=== PATIENT | male | born 1970 | race African-American/Black ===

== ENCOUNTER 2019-09-25 16:41 | Inpatient (IN) ==
[2019-09-25] MEDS ORDERED: ACETAMINOPHEN 1,000 MG/100 ML VIAL IV STA (17:20)
[2019-09-25] MEDS ORDERED: SODIUM CHLORIDE 0.9% 1000ML 2,000 ML IV ONE (17:20)
[2019-09-25] MEDS ORDERED: PROCHLORPERAZINE 2 ML IV ONE (17:20)
[2019-09-25] MEDS ORDERED: DEXAMETHASONE SOD INJ 10 MG/ML VIAL IV ONE (17:20)
[2019-09-25 17:31] LABS: Hematocrit (blood only) 37.5 % (42-52); Hemoglobin 13.2 g/dL (14.0-18.0); Immature Granulocytes # (auto) 0.03 K/uL (0.00-0.02); Immature Granulocytes % (auto) 0.3 %; Lymphocytes # (auto) 0.68 K/uL (1.2-3.4); Lymphocytes % (auto) 7.2 %; Mean Corpuscular Hemoglobin 29.5 pg (25-34); Mean Corpuscular Hgb Conc 35.2 g/dL (32-36); Mean Corpuscular Volume 83.7 fL (80-100); Mean Platelet Volume 11.7 fL (7.4-10.4); Monocytes # (auto) 1.27 K/uL (0.11-0.59); Monocytes % (auto) 13.4 %; Neutrophils % (auto) 79.1 %; Platelet Count 153 K/uL (130-400); RDW Coefficient of Variation 13.6 % (11.5-14.5); RDW Standard Deviation 41.5 fL (36.4-46.3); Red Blood Count 4.48 M/uL (4.7-6.1); White Blood Count 9.48 K/uL (4.8-10.8)
[2019-09-25 17:38] LABS: Alanine Aminotransferase 71 U/L (12-78); Albumin Level 2.5 gm/dl (3.4-5.0); Aspartate Aminotransferase 93 U/L (15-37); BUN Creatinine Ratio 9.6 (10-20); Bilirubin Direct 0.3 mg/dl (0-0.2); Blood Urea Nitrogen 13 mg/dl (7-18); Calcium 8.2 mg/dl (8.5-10.1); Carbon Dioxide 25 mmol/L (21-32); Chloride 98 mmol/L (98-107); Creatinine Clr Calc Pharmacy 71.1 ml/min; Est GFR (African American) 69.1; Est GFR (Non-African American) 59.6; Glucose 117 mg/dl (70-99); Magnesium 2.3 mg/dl (1.8-2.4); Potassium 3.2 mmol/L (3.5-5.1); Sodium 132 mmol/L (136-145)
[2019-09-25 17:42] LABS: INR 1.1 (0.9-1.1); Partial Thromboplastin Ratio 1.3; Prothrombin Time 11.9 Seconds (9.0-12.0)
[2019-09-25 17:43] LABS: Alkaline Phosphatase 95 U/L (45-117); Bilirubin,Total 0.7 mg/dl (0.2-1); Creatine Kinase 355 U/L (39-308); Phosphorus 2.2 mg/dl (2.5-4.9); Troponin I < 0.015 ng/ml (0-0.045)
[2019-09-25 17:51] LABS: Albumin Globulin Ratio 0.5 (0.9-2); Globulin 4.7 gm/dl (2.5-4.0); Total Protein 7.2 gm/dl (6.4-8.2)
[2019-09-25] MEDS ORDERED: AZITHROMYCIN 250 MG TAB PO ONE (18:03)
--- NOTE | 2019-09-25 18:07 | XRay Report ---
XR chest 1V portable HISTORY: 49 years-old Male SEPSIS acute sepsis COMPARISON: None TECHNIQUE: Portable AP view of the chest FINDINGS: Cardiac silhouette is upper limits of normal in size. Mild calcified plaque of the thoracic aorta. No pneumothorax. Mild blunting of the costophrenic angles may reflect trace effusions. Multisegmental m ixed interstitial and alveolar opacities are noted throughout the left lung. Bones appear grossly int act. IMPRESSION: Multifocal mixed interstitial and alveolar opacities throughout the left lung are suggest fritz of pneumonia. Asymmetric pulmonary edema considered less likely. ACT 112: Negative or not required by law. The above report was generated using voice recognition software. It may contain grammatical, syntax o r spelling errors. Electronically signed by: Rob Brunson M.D. 09/25/2019 6:06 PM
[2019-09-25] MEDS: cefTRIAXone SODIUM 2,000 MG/70 ML BAG IV STA ×2 (18:25→18:40)
[2019-09-25] MEDS ORDERED: VANCOMYCIN HCL 1,750 MG in SODIUM CHLORIDE 0.9% 500 ML IV ONE (18:35)
[2019-09-25] MEDS ORDERED: PIPERACILLIN/TAZOBACTAM 4.5 GM/120 ML BAG IV ONE (18:35)
[2019-09-25] MEDS ORDERED: PIPERACILL/TAZOBAC CONSULT ACTIVE PRN (18:35)
[2019-09-25] MEDS ORDERED: VANCOMYCIN CONSULT ACTIVE PRN ×2 (18:35→22:02)
--- NOTE | 2019-09-25 19:04 | History & Physical Report ---
Date of Service September 25, 2019 Assessment & Plan (1) Sepsis: Lactate WNL. 2L NSS bolus given in ER. SIRS criteria with RR 28, tachycardia > 90, temp 38.2 Source PNA +/- meningitis (severe headache, neck pain, prior tooth extraction without significant respiratory symptoms) (2) Pneumonia: COVID-19 negative. Biofire pending MRSA nasal swab negative - however given possibility of meningitis we will continue vancomycin until CSF culture back Continue ceftriaxone dose for meningitis, vancomycin, azithromycin (3) Headache: Significantly improved with Decadron, acetaminophen, IV fluids (4) Bacterial meningitis: Given significant fever, diaphoresis with main symptoms of headache, dizziness and neck pain will get LP to r/o meningitis since he has very little respiratory symptoms. No altered mental state of focal neurology and neck pain resolved with treatment in the ER. Presentation of 4 days of symptoms also not typical. No known immunocompromised state to suggest this however. Vancomycin + Ceftriaxone 2g IV BID prior to meningitis rule out Decadron 10mg given in ER, continue 10mg IV Q6H until meningitis ruled out (5) Hypoxia: Secondary to PNA above. Aim O2 sats > 94% (6) DVT prophylaxis: Deferred chemical prophylaxis due to need for LP Admission and Anticipated Discharge Date Admission Date: 09/25/19 History of Present Illness Chief Complaint: Fever, headache Primary Care Provider: GABRIELLE Escudero Chaim Craig is a 49-year-old male who presents to the ER with fever, fatigue, severe headache, neck pain for the past 4 days. He reports his symptoms started suddenly 4 days ago Sunday. Progressively getting worse since then. He reports relatively rapid relief in the ER with Decadron, Compazine, acetaminophen, 2 L normal saline bolus and antibiotics given, although he is still significantly diaphoretic. He denies any chest pain, cough, shortness of breath. Note from review does report hypoxia with O2 sats 89% on room air. In the ER he was initially given ceftriaxone and Zithromax. After referred to medicine his antibiotics were broadened to Zosyn and Vancomycin although I am unclear on the reasons for this. COVID-19 was negative. 2 weeks ago he had a tooth pulled. Allergies Allergy/AdvReac Type Severity Reaction Status Date / Time No Known Allergies Allergy Unverified 09/25/19 17:31 Home Medications Home Medications Medication Instructions Recorded Confirmed Type No Known Home Medications 09/25/19 09/25/19 History Past Med/Surg History Social History Smoking Status: Former smoker Do You Dip or Chew Tobacco: No; Hx Alcohol Use: No (former) Hx Substance Use: No Preferred Language: Belarusian Communication Ability: Effective Nurse Private Duty Required: No Beliefs That Will Affect Care: None Current Living Situation: Other Current Living Situation Comment: [facility] Feels Safe at Home: Yes Review of Systems Review of Systems: All systems reviewed & are unremarkable except as noted in HPI & below Physical Exam Constitutional: well developed and well nourished; no acute distress Eyes: PERRL, conjunctivae normal, anicteric sclerae ENMT: external ear and nose normal, oropharynx normal Neck: trachea midline, no thyromegaly Respiratory: normal respiratory effort; no respiratory distress Auscultation: + crackles (coarse left base and laterally); no diminished lung sounds, no rales, no rhonchi and no wheezes Cardiovascular: Rate/Rhythm: + tachycardic Heart Sounds: no murmur Vessels: no JVD Extremities: normal capillary refill; no calf tenderness and no pedal edema Gastrointestinal (Abdomen): normal bowel sounds, soft, nontender, no hepatosplenomegaly Musculoskeletal: no cyanosis or clubbing, extremities motor strength 5/5 Skin: no rashes, warm and dry Neurologic: moves all extremities and awake; no focal motor deficits, no meningeal signs (Kernig/Brudzinski's negative) and not confused Speech / Cognition: normal speech Motor/Sensory: no tremor and no pronator drift Cranial Nerves: PERRL, normal accommodation, EOM intact bilaterally, normal facial strength, able to rotate head bilaterally, able to elevate shoulders bilaterally, no nystagmus and symmetric palate elevation Coordination: normal cepshy-fi-ixio test and normal [id number] test Psychiatric: A+Ox3, euthymic affect Genitourinary: no CVA tenderness Lymphatic: no cervical or axillary lymphadenopathy Results & Data Results & Data ([facility]) Vital Signs (Past 12 Hours) Vital Signs Temp Pulse Resp BP Pulse Ox 09/25/19 17:30 98 09/25/19 16:55 38.2 C H 105 H 28 H 155/96 H 98 Diagnostic Findings XR chest 1V portable IMPRESSION: Multifocal mixed interstitial and alveolar opacities throughout the left lung are suggestive of pneumonia. Asymmetric pulmonary edema considered less likely. Code Status & VTE Plan Code Status Full VTE Prophylaxis Plan VTE Prophylaxis will be ordered: No PG Care Time/CCT Total # of Minutes Spent Total Time Spent with Patient: Total time spent is greater than 50% in coordination of care (as documented) at patient's floor/unit and/or counseling patient: Coding Level of Care Code 43365 Initial Inpt Care Lvl 3 Diagnoses Sepsis A41.9 Pneumonia J18.9 Headache R51 Bacterial meningitis G00.9 Hypoxia R09.02 DVT prophylaxis Z29.9
--- NOTE | 2019-09-25 19:34 | CT Scan Report ---
CT head/brain wo con CLINICAL HISTORY: 49 years-old Male with headache, fever. Acute headache with fever TECHNIQUE: Multiple axial CT images of the head were obtained without contrast. A dose lowering tech nique was utilized adhering to the principles of ALARA. CT DOSE: 614.27 mGy.cm COMPARISON: None. FINDINGS: No acute intracranial hemorrhage, midline shift, intracranial mass, hydrocephalus, territorial ischem ia or abnormal extra-axial collection. Senescent calcifications of the right lentiform nucleus. The calvarium is intact. Mastoid air cells are clear. Mild mucosal thickening of the ethmoid air von ls. Soft tissues and orbits are unremarkable. IMPRESSION: No acute intracranial abnormality. ACT 112: Negative or not required by law. The above report was generated using voice recognition software. It may contain grammatical, syntax o r spelling errors. Electronically signed by: Rob Brunson M.D. 09/25/2019 7:33 PM
[2019-09-25] MEDS ORDERED: POTASSIUM CHLORIDE 20 MEQ TABCR PO ONE (22:08)
[2019-09-25] MEDS ORDERED: cefTRIAXone SODIUM 2,000 MG in DEXTROSE 5% 50 ML IV SCH (22:30)
--- NOTE | 2019-09-25 22:31 | Pharmacy Report ---
Pharmacy Abx Dose Short Note - Date of Service September 25, 2019 - Assessment & Plan Assessment 49 year old M receiving VANC/CEFTRIAXONE/AZITHROMYCIN for treatment for possible BACTERIAL MENINGITIS/PNA/SEPSIS Day # 1 of antimicrobial therapy. * Also received Zosyn 4.5g in ED Plan Vancomycin * Patient meets criteria for vancomycin AUC dosing nomogram * AUC/MARLYS is the preferred PK/PD target for vancomycin * Target AUC/MARLYS = 400-600 * AUC guided dosing is effective and associated with decreased risk of nephrotoxicity * Vanc trough prior to 4th dose 09/27/19 0400 dose Pharmacy will continue to follow and will adjust dose/frequency as necessary. Thank you.
--- NOTE | 2019-09-25 23:30 | Fluoroscopy Report ---
FL lumbar puncture diagnostic CLINICAL HISTORY: 49 years-old Male with Bacterial Meningitis. Acute sepsis PROCEDURE: The risks, benefits, and alternatives to the procedure is discussed with the patient who v oiced understanding. Written informed consent was obtained. The patient was placed prone on the fluor oscopy table. The lower back was prepped and draped in the usual sterile fashion. 1% lidocaine was us ed for local anesthesia. A 20-gauge spinal needle was inserted into the L3-L4 interlaminar space, and images in the frontal and lateral projection were obtained confirming proper positioning of the need le tip within the central canal. Despite proper positioning of the needle confirmed with imaging, the re was no return of CSF into the needle hub. The needle was then removed and repositioned with the sa me results. Additional attempt was obtained at the L2-L3 level. The patient was uncomfortable and no further attempts were made. There were no immediate complications. The patient was then [facility] the [facility]. Fluoroscopy time: 0.8 minutes IMPRESSION: Fluoroscopic guided lumbar puncture without return of cerebrospinal fluid compatible with a dry tap. There were no immediate complications. ACT 112: Negative or not required by law. The above report was generated using voice recognition software. It may contain grammatical, syntax o r spelling errors. Electronically signed by: Rob Brunson M.D. 09/25/2019 11:24 PM
--- NOTE | 2019-09-25 23:34 | Emergency Department Note ---
Impression & Plan Sepsis, Multifocal pneumonia, Headache, Hypoxia ED Provider Note NAME: MAYTE [id number] SHEMAR AGE: 49 SEX: M ARRIVES VIA: Ambulance INFORMANT: Patient, ED PROVIDER(S): Javon Martinez MD CHIEF COMPLAINT: Fever, Headache, SOB PLAN: Disposition: Admit MEDICAL DECISION MAKING: The patient is a 49 y/o gentleman, current inmate at [facility] who presents to the emergency department with generalized weakness, CALLEJAS, fevers, sore throat, sob, and cough/congestion and loss of taste and smell evolving since Sunday. On arrival the patient is uncomfortable appearing but in NAD, febrile to 38.2 HR 100s, hypoxic to upper 80s on RA and otherwise VSS. Patient appears clinically dry. Lungs with rhonchi of left lung jackson. Neck is supple with FROM. Neurol ogically intact. EKG without evidence of acute ischemia. CXR with multifocal pna of left lung jackson. WBC and platelets wnl. H/H 13.2/37.5 without prior for comparison. Chemistry without acidosis. Phosphorus 2.2 and otherwise electrolytes unremarkable. AST 93, nonspecific. Troponin negative. Procalcitonin 3.6. CT head negative for acute process. Given elevated procalcitonin patient ordered for Zosyn and Vancomycin, in addition to azithromycin for atypical coverage. Covid19 PCR negative. Patient feeling improved after IVF hydration, apap, compazine, dexamethasone. Case was discussed with Dr. Manzano, [facility] hospitalist, who will evaluate the patient for admission. Triage Nursing notes reviewed and agree them. Prior medical records reviewed Vital Signs: reviewed and remarkable for no significant abnormalities Differential diagnosis: Sepsis, UTI, pneumonia, metabolic, electrolyte abnormalities, cardiac sources, intracerebral event, toxicologic, neurologic, as well as other pathologies. ER treatment provided: See Below. Diagnostics interpreted by me: ECG: NSR, 102 bpm, no ectopy, no overt ST elevation or depression. Cardiac Monitoring: An order for continuous cardiac monitoring was placed and demonstrated NSR, 102 bpm, no ectopy. Laboratory studies: See below Imaging studies: CT head/brain wo con CLINICAL HISTORY: 49 years-old Male with headache, fever. Acute headache with fever TECHNIQUE: Multiple axial CT images of the head were obtained without contrast. A dose lowering technique was utilized adhering to the principles of ALARA. CT DOSE: 614.27 mGy.cm COMPARISON: None. FINDINGS: No acute intracranial hemorrhage, midline shift, intracranial mass, hydrocephalus, territorial ischemia or abnormal extra-axial collection. Senescent calcifications of the right lentiform nucleus. The calvarium is intact. Mastoid air cells are clear. Mild mucosal thickening of the ethmoid air cells. Soft tissues and orbits are unremarkable. IMPRESSION: No acute intracranial abnormality. XR chest 1V portable HISTORY: 49 years-old Male SEPSIS acute sepsis COMPARISON: None TECHNIQUE: Portable AP view of the chest FINDINGS: Cardiac silhouette is upper limits of normal in size. Mild calcified plaque of the thoracic aorta. No pneumothorax. Mild blunting of the costophrenic angles may reflect trace effusions. Multisegmental mixed interstitial and alveolar opacities are noted throughout the left lung. Bones appear grossly intact. IMPRESSION: Multifocal mixed interstitial and alveolar opacities throughout the left lung are suggestive of pneumonia. Asymmetric pulmonary edema considered less likely. Consultation(s): Case was discussed with Dr. Manzano, [facility] hospitalist, who will evaluate the patient for admission. HPI: The patient is a 49 y/o gentleman, current inmate at [facility] who presents to the emergency department with generalized weakness, CALLEJAS, fevers, sore throat, sob, and cough/congestion and loss of taste and smell evolving since Sunday. ROS: See above HPI for pertinent positives & negatives. A total of 10 systems reviewed and were otherwise negative. PAST MEDICAL HISTORY:See Below PAST SURGICAL HISTORY:See Below FAMILY HISTORY:See Below SOCIAL HISTORY:See Below HOME MEDICATIONS:See Below ALLERGIES:See Below VITALS:See Below PHYSICAL EXAMINATION: GENERAL: Awake, alert, uncomfortable-appearing, in no distress HENT: Normocephalic, atraumatic. Oropharynx with dry mucous membranes and otherwise unremarkable. EYES: Normal conjunctiva. Sclera non-icteric. EOMI. No nystamgus. PEARRL. NECK: Supple. No nuchal rigidity. FROM. No JVD. RESPIRATORY: Scattered rhonchi of left lung jackson. CARDIAC: Tachycardic rate, normal rhythm. Extremities warm and well perfused. Pulses equal. ABDOMEN: Soft, non-distended. No tenderness to palpation. No rebound or guarding. No masses. RECTAL: Deferred. MUSCULOSKELETAL: Chest examination reveals no tenderness. The back is symmetrical on inspection without obvious abnormality. There is no CVA tenderness to palpation. No joint edema. LOWER EXTREMITIES: Calves are equal size bilaterally and non-tender. No edema. No discoloration. NEURO: Normal sensorium. No sensory or motor deficits noted. SKIN: No rash or jaundice noted. ED COURSE: Critical Care: I have personally spent greater than 85 minutes of critical care time in the direct management of this patient. This includes bedside care, interpretation of diagnostic studies, and testing, discussion with consultants, patient, and family members, and other required patient management activities. This 85 minutes is in excess of all separately billable procedures. Javon Martinez MD Past Med/Surg History Social History Smoking Status: Former smoker Do You Dip or Chew Tobacco: No; Hx Alcohol Use: No (former) Hx Substance Use: No Preferred Language: Romansh Communication Ability: Effective Watch Dial Stoner Required: No Beliefs That Will Affect Care: None Current Living Situation: Other Current Living Situation Comment: long-term Feels Safe at Home: Yes Allergies Allergies Allergy/AdvReac Type Severity Reaction Status Date / Time No Known Allergies Allergy Unverified 09/25/19 17:31 Home Meds Home Medications Medication Instructions Recorded Confirmed No Known Home Medications 09/25/19 09/25/19 Results & Data (ED) Vital Signs Vital Signs - 24 hr 09/25/19 16:55 09/25/19 17:00 09/25/19 17:07 Temperature 38.2 C H Temperature Source Oral Pulse Rate 105 H 101 H 101 H Pulse Rate from SpO2 Sensor 101 H 101 H Respiratory Rate 28 H 25 H Blood Pressure 155/96 H 152/89 H Blood Pressure Mean 115 111 Pulse Oximetry 98 99 98 Oxygen Delivery Method Nasal Cannula Oxygen Flow Rate 2 Sepsis Recent Fever Within 48 Hours No Sepsis New/Unexplained Change in Mental Status No Sepsis Action Taken by Nursing No Action Required 09/25/19 17:10 09/25/19 17:20 09/25/19 17:30 Temperature Temperature Source Pulse Rate 98 H 95 H 98 H Pulse Rate from SpO2 Sensor 99 H 97 H 98 H Respiratory Rate 25 H Blood Pressure 163/97 H Blood Pressure Mean 117 Pulse Oximetry 100 99 100 Oxygen Delivery Method Nasal Cannula Oxygen Flow Rate 2 Sepsis Recent Fever Within 48 Hours Sepsis New/Unexplained Change in Mental Status Sepsis Action Taken by Nursing 09/25/19 17:31 09/25/19 17:40 09/25/19 17:50 Temperature Temperature Source Pulse Rate 96 H 93 H 98 H Pulse Rate from SpO2 Sensor 96 H 92 H 99 H Respiratory Rate Blood Pressure Blood Pressure Mean Pulse Oximetry 100 98 99 Oxygen Delivery Method Oxygen Flow Rate Sepsis Recent Fever Within 48 Hours Sepsis New/Unexplained Change in Mental Status Sepsis Action Taken by Nursing 09/25/19 18:00 09/25/19 18:01 09/25/19 18:10 Temperature Temperature Source Pulse Rate 97 H 102 H 101 H Pulse Rate from SpO2 Sensor 97 H 103 H 102 H Respiratory Rate Blood Pressure 157/95 H Blood Pressure Mean 118 Pulse Oximetry 100 98 98 Oxygen Delivery Method Oxygen Flow Rate Sepsis Recent Fever Within 48 Hours Sepsis New/Unexplained Change in Mental Status Sepsis Action Taken by Nursing 09/25/19 18:20 09/25/19 18:29 09/25/19 18:30 Temperature Temperature Source Pulse Rate 100 H 103 H 106 H Pulse Rate from SpO2 Sensor 102 H 103 H 105 H Respiratory Rate 27 H Blood Pressure 136/85 Blood Pressure Mean 93 Pulse Oximetry 98 99 97 Oxygen Delivery Method Oxygen Flow Rate Sepsis Recent Fever Within 48 Hours Sepsis New/Unexplained Change in Mental Status Sepsis Action Taken by Nursing 09/25/19 18:31 09/25/19 18:40 09/25/19 18:50 Temperature Temperature Source Pulse Rate 104 H 99 H 106 H Pulse Rate from SpO2 Sensor 102 H 102 H 106 H Respiratory Rate Blood Pressure 129/110 H Blood Pressure Mean 114 Pulse Oximetry 98 98 100 Oxygen Delivery Method Oxygen Flow Rate Sepsis Recent Fever Within 48 Hours Sepsis New/Unexplained Change in Mental Status Sepsis Action Taken by Nursing 09/25/19 19:00 09/25/19 19:01 09/25/19 19:10 Temperature Temperature Source Pulse Rate 107 H 107 H 105 H Pulse Rate from SpO2 Sensor 107 H 106 H 104 H Respiratory Rate 24 24 24 Blood Pressure 159/90 H Blood Pressure Mean 105 Pulse Oximetry 91 96 97 Oxygen Delivery Method Oxygen Flow Rate Sepsis Recent Fever Within 48 Hours Sepsis New/Unexplained Change in Mental Status Sepsis Action Taken by Nursing Laboratory Data Attestation: I reviewed the patient's lab results. Result diagrams: 09/25/19 17:12 09/25/19 23:37 Lab Results 09/25/19 09/25/19 09/25/19 Range/Units 17:12 17:12 17:12 WBC 9.48 (4.8-10.8) K/uL RBC 4.48 L (4.7-6.1) M/uL Hgb 13.2 L (14.0-18.0) g/dL Hct 37.5 L (42-52) % MCV 83.7 (80-100) fL MCH 29.5 (25-34) pg MCHC 35.2 (32-36) g/dL RDW Std Deviation 41.5 (36.4-46.3) fL RDW Coeff of Kelli 13.6 (11.5-14.5) % Plt Count 153 (130-400) K/uL MPV 11.7 H (7.4-10.4) fL Immature Gran % (Auto) 0.3 % Neut % (Auto) 79.1 % Lymph % (Auto) 7.2 % [place] % (Auto) 13.4 % Eos % (Auto) 0.0 % Baso % (Auto) 0.0 % Neut # (Auto) 7.50 H (1.4-6.5) K/uL Lymph # (Auto) 0.68 L (1.2-3.4) K/uL [place] # (Auto) 1.27 H (0.11-0.59) K/uL Eos # (Auto) 0.00 (0-0.5) K/uL Baso # (Auto) 0.00 (0-0.2) K/uL Immature Gran # (Auto) 0.03 H (0.00-0.02) K/uL PT 11.9 (9.0-12.0) Seconds INR 1.1 (0.9-1.1) APTT 35.0 H (21.0-31.0) Seconds PTT Ratio 1.3 Sodium 132 L (136-145) mmol/L Potassium 3.2 L (3.5-5.1) mmol/L Chloride 98 (98-107) mmol/L Carbon Dioxide 25 (21-32) mmol/L Anion Gap 9.0 (3-11) BUN 13 (7-18) mg/dl Creatinine 1.38 (0.6-1.4) mg/dl Est Cr Clr Drug Dosing 71.1 ml/min Est GFR ( Amer) 69.1 Est GFR (Non-Af Amer) 59.6 BUN/Creatinine Ratio 9.6 L (10-20) Glucose 117 H (70-99) mg/dl Lactate (0.4-2.0) mmol/L Calcium 8.2 L (8.5-10.1) mg/dl Phosphorus 2.2 L (2.5-4.9) mg/dl Magnesium 2.3 (1.8-2.4) mg/dl Total Bilirubin 0.7 (0.2-1) mg/dl Direct Bilirubin 0.3 H (0-0.2) mg/dl AST 93 H (15-37) U/L ALT 71 (12-78) U/L Alkaline Phosphatase 95 (45-117) U/L Total Creatine Kinase 355 H (39-308) U/L Troponin I < 0.015 (0-0.045) ng/ml Total Protein 7.2 (6.4-8.2) gm/dl Albumin 2.5 L (3.4-5.0) gm/dl Globulin 4.7 H (2.5-4.0) gm/dl Albumin/Globulin Ratio 0.5 L (0.9-2) Procalcitonin (0-0.5) ng/ml Nasal Screen MRSA (PCR) (Negative) COVID-19 Eval Order COVID-19 PCR (Negative) 09/25/19 09/25/19 09/25/19 Range/Units 17:12 17:12 17:20 WBC (4.8-10.8) K/uL RBC (4.7-6.1) M/uL Hgb (14.0-18.0) g/dL Hct (42-52) % MCV (80-100) fL MCH (25-34) pg MCHC (32-36) g/dL RDW Std Deviation (36.4-46.3) fL RDW Coeff of Kelli (11.5-14.5) % Plt Count (130-400) K/uL MPV (7.4-10.4) fL Immature Gran % (Auto) % Neut % (Auto) % Lymph % (Auto) % [place] % (Auto) % Eos % (Auto) % Baso % (Auto) % Neut # (Auto) (1.4-6.5) K/uL Lymph # (Auto) (1.2-3.4) K/uL [place]ola # (Auto) (0.11-0.59) K/uL Eos # (Auto) (0-0.5) K/uL Baso # (Auto) (0-0.2) K/uL Immature Gran # (Auto) (0.00-0.02) K/uL PT (9.0-12.0) Seconds INR (0.9-1.1) APTT (21.0-31.0) Seconds PTT Ratio Sodium (136-145) mmol/L Potassium (3.5-5.1) mmol/L Chloride (98-107) mmol/L Carbon Dioxide (21-32) mmol/L Anion Gap (3-11) BUN (7-18) mg/dl Creatinine (0.6-1.4) mg/dl Est Cr Clr Drug Dosing ml/min Est GFR ( Amer) Est GFR (Non-Af Amer) BUN/Creatinine Ratio (10-20) Glucose (70-99) mg/dl Lactate 1.4 (0.4-2.0) mmol/L Calcium (8.5-10.1) mg/dl Phosphorus (2.5-4.9) mg/dl Magnesium (1.8-2.4) mg/dl Total Bilirubin (0.2-1) mg/dl Direct Bilirubin (0-0.2) mg/dl AST (15-37) U/L ALT (12-78) U/L Alkaline Phosphatase (45-117) U/L Total Creatine Kinase (39-308) U/L Troponin I (0-0.045) ng/ml Total Protein (6.4-8.2) gm/dl Albumin (3.4-5.0) gm/dl Globulin (2.5-4.0) gm/dl Albumin/Globulin Ratio (0.9-2) Procalcitonin 3.62 H (0-0.5) ng/ml Nasal Screen MRSA (PCR) (Negative) COVID-19 Eval Order Covid19 Done at [facility] COVID-19 PCR (Negative) 09/25/19 09/25/19 Range/Units 17:20 19:00 WBC (4.8-10.8) K/uL RBC (4.7-6.1) M/uL Hgb (14.0-18.0) g/dL Hct (42-52) % MCV (80-100) fL MCH (25-34) pg MCHC (32-36) g/dL RDW Std Deviation (36.4-46.3) fL RDW Coeff of Kelli (11.5-14.5) % Plt Count (130-400) K/uL MPV (7.4-10.4) fL Immature Gran % (Auto) % Neut % (Auto) % Lymph % (Auto) % [place] % (Auto) % Eos % (Auto) % Baso % (Auto) % Neut # (Auto) (1.4-6.5) K/uL Lymph # (Auto) (1.2-3.4) K/uL [place] # (Auto) (0.11-0.59) K/uL Eos # (Auto) (0-0.5) K/uL Baso # (Auto) (0-0.2) K/uL Immature Gran # (Auto) (0.00-0.02) K/uL PT (9.0-12.0) Seconds INR (0.9-1.1) APTT (21.0-31.0) Seconds PTT Ratio Sodium (136-145) mmol/L Potassium (3.5-5.1) mmol/L Chloride (98-107) mmol/L Carbon Dioxide (21-32) mmol/L Anion Gap (3-11) BUN (7-18) mg/dl Creatinine (0.6-1.4) mg/dl Est Cr Clr Drug Dosing ml/min Est GFR ( Amer) Est GFR (Non-Af Amer) BUN/Creatinine Ratio (10-20) Glucose (70-99) mg/dl Lactate (0.4-2.0) mmol/L Calcium (8.5-10.1) mg/dl Phosphorus (2.5-4.9) mg/dl Magnesium (1.8-2.4) mg/dl Total Bilirubin (0.2-1) mg/dl Direct Bilirubin (0-0.2) mg/dl AST (15-37) U/L ALT (12-78) U/L Alkaline Phosphatase (45-117) U/L Total Creatine Kinase (39-308) U/L Troponin I (0-0.045) ng/ml Total Protein (6.4-8.2) gm/dl Albumin (3.4-5.0) gm/dl Globulin (2.5-4.0) gm/dl Albumin/Globulin Ratio (0.9-2) Procalcitonin (0-0.5) ng/ml Nasal Screen MRSA (PCR) Negative (Negative) COVID-19 Eval Order COVID-19 PCR NEGATIVE (Negative) Administered Medications Dexamethasone Sodium Phosphate (10 mg/ Syringe) 2.5 mls @ 1 mls/min IV Q6 SAILAJA Stop: 10/26/19 00:00 Last Admin: 09/25/19 23:40 Dose: 1 mls/min Documented by: [id number] Ceftriaxone Sodium 2,000 mg/ (Dextrose) 70 mls @ 140 mls/hr IV Q12H SAILAJA; Protocol Stop: 09/27/19 22:29 Last Infusion: 09/26/19 00:17 Dose: 0 mls/hr Documented by: [id number] Admin: 09/25/19 23:46 Dose: 140 mls/hr Documented by: [id number] Discontinued Medications Azithromycin (Azithromycin 250 Mg Tab) 500 mg PO NOW ONE Stop: 09/25/19 18:04 Last Admin: 09/25/19 18:41 Dose: 500 mg Documented by: [id number] Dexamethasone (Dexamethasone Sod Inj 10 Mg/Ml Vial) 10 mg IV NOW ONE Stop: 09/25/19 17:21 Last Admin: 09/25/19 18:25 Dose: 10 mg Documented by: [id number] Sodium Chloride (Nss 1000ml) 2,000 mls @ 999 mls/hr IV .Q2H1M ONE Stop: 09/25/19 19:20 Last Infusion: 09/25/19 20:51 Dose: 0 mls/hr Documented by: [id number] Admin: 09/25/19 18:25 Dose: 999 mls/hr Documented by: [id number] Acetaminophen (Ofirmev) 1,000 mg in 100 mls @ 400 mls/hr IV NOW STA Stop: 09/25/19 17:34 Last Infusion: 09/25/19 18:40 Dose: 0 mls/hr Documented by: [id number] Admin: 09/25/19 18:25 Dose: 400 mls/hr Documented by: [id number] Prochlorperazine (Compazine) 2 mls @ 1 mls/min IV ONE ONE Stop: 09/25/19 17:21 Last Admin: 09/25/19 18:25 Dose: 1 mls/min Documented by: [id number] Ceftriaxone Sodium (Rocephin) 2,000 mg in 70 mls @ 140 mls/hr IV NOW STA Stop: 09/25/19 18:32 Last Admin: 09/25/19 18:40 Dose: Not Given Documented by: [id number] Piperacillin Sod/Tazobactam Sod (Zosyn) 4.5 gm in 120 mls @ 240 mls/hr IV NOW ONE Stop: 09/25/19 19:04 Last Infusion: 09/25/19 20:51 Dose: 0 mls/hr Documented by: [id number] Admin: 09/25/19 18:47 Dose: 240 mls/hr Documented by: [id number] Vancomycin HCl 1,750 mg/ (Sodium Chloride) 535 mls @ 200 mls/hr IV NOW ONE Stop: 09/25/19 21:15 Last Infusion: 09/25/19 22:24 Dose: 0 mls/hr Documented by: [id number] Admin: 09/25/19 18:55 Dose: 200 mls/hr Documented by: [id number] Potassium Chloride (Potassium Chloride 20 Meq Tabcr) 40 meq PO NOW ONE Stop: 09/25/19 22:09 Last Admin: 09/26/19 00:46 Dose: 40 meq Documented by: [id number] Blood Pressure Blood Pressure Findings: Normal blood pressure Blood Pressure Disposition: further management by hospitalist Discharge Plan Visit Data Chief Complaint: Headache ED Provider: Javon Martinez Discharge Problem: Sepsis, Multifocal pneumonia, Headache, Hypoxia Patient Disposition: Admitted As Inpatient Discharge Instructions Interventions: ED Discharge Assessment Last Done: 09/25/19 21:34 Discharge Problem: Sepsis Qualifiers: Sepsis type: sepsis due to unspecified organism Sepsis acute organ dysfunction status: unspecified Qualified Code(s): A41.9 - Sepsis, unspecified organism Headache Qualifiers: Headache type: tension-type Headache chronicity pattern: acute headache Intractability: not intractable Qualified Code(s): G44.209 - Tension-type headache, unspecified, not intractable
[2019-09-25] MEDS: DEXAMETHASONE SOD PHOSPHATE 10 MG in SYRINGE 0 ML IV SCH (23:40)
[2019-09-26 01:47] LABS: Adenovirus PCR Not Detected (NotDetected); Bordetella parapertussis PCR Not Detected (NotDetected); Bordetella pertussis PCR Not Detected (NotDetected); Chlamydia pneumoniae PCR Not Detected (NotDetected); Coronavirus 229E PCR Not Detected (NotDetected); Coronavirus HKU1 PCR Not Detected (NotDetected); Coronavirus NL63 PCR Not Detected (NotDetected); Coronavirus OC43PCR Not Detected (NotDetected); Human Metapneumovirus PCR Not Detected (NotDetected); Influenza A PCR Not Detected (NotDetected); Influenza B PCR Not Detected (NotDetected); Mycoplasma pneumoniae PCR Not Detected (NotDetected); Parainfluenza Virus 1 PCR Not Detected (NotDetected); Parainfluenza Virus 2 PCR Not Detected (NotDetected); Parainfluenza Virus 3 PCR Not Detected (NotDetected); Parainfluenza Virus 4 PCR Not Detected (NotDetected); Respiratory Syncytial VirusPCR Not Detected (NotDetected); Rhinovirus/Enterovirus PCR Not Detected (NotDetected)
[2019-09-26 03:37] LABS: Appearance Urine Clear (Clear); Bacteria Urine Automated Negative (Negative); Bilirubin Urine Negative (Negative); Blood Urine 2+ (Negative); Color Urine Yellow; Glucose Urine UA Negative (Negative); Ketones Urine Negative (Negative); Leukocyte Esterase Urine Negative (Negative); Nitrite Urine Negative (Negative); Protein Urine Trace (Negative); RBC Urine Automated 0-4 /hpf (0-4); Specific Gravity Urine 1.014 (1.000-1.030); Urobilinogen Urine Negative (Negative)
[2019-09-26] MEDS ORDERED: VANCOMYCIN HCL 1,250 MG in SODIUM CHLORIDE 0.9% 250 ML IV SCH (04:00)
[2019-09-26] MEDS: DEXAMETHASONE SOD PHOSPHATE 10 MG in SYRINGE 0 ML IV SCH ×4 (06:08→23:33)
[2019-09-26 08:13] LABS: Creatinine Clr Calc Pharmacy 91.7 ml/min; Est GFR (Non-African American) 81.1
[2019-09-26] MEDS ORDERED: AZITHROMYCIN 250 MG in DEXTROSE 5% 250 ML IV SCH (09:00)
[2019-09-26] MEDS: AZITHROMYCIN 500 MG in DEXTROSE 5% 250 ML IV SCH (09:31)
[2019-09-26] MEDS: NSS + 20MEQ KCL 20 MEQ/1,000 ML BAG IV SCH ×2 (09:53→23:31)
--- NOTE | 2019-09-26 11:55 | Hospitalist Progress Note ---
Date of Service September 26, 2019 Assessment & Plan (1) Sepsis: Lactate WNL. 2L NSS bolus given in ER. SIRS criteria with RR 28, tachycardia > 90, temp 38.2 Source PNA +/- meningitis (severe headache, neck pain, prior tooth extraction without significant respiratory symptoms) (2) Pneumonia: COVID-19 negative. Suspect viral etiology. MRSA nasal swab negative . Continue azithromycin and Rocephin for now. Await infectious disease consultation. (3) Headache: Significantly improved with Decadron, acetaminophen, IV fluids (4) Bacterial meningitis: Clinically he does not have bacterial meningitis. Lumbar puncture was attempted in the ED but he had a dry tap with no CSF fluid obtained. He is alert and oriented at this time with out nuchal rigidity. (5) Hypoxia: Secondary to PNA above. Aim O2 sats > 94% (6) DVT prophylaxis: Early ambulation Admission and Anticipated Discharge Date Admission Date: September 25, 2019 Subjective Alert and oriented. Headache is still present but much improved. His neck stiffness has resolved. Clinically he appears to have a viral syndrome producing possible viral meningitis and the chest x-ray findings of what appears to be an atypical pneumonia or viral pneumonitis. He denies coughing or sputum production. He remains on a azithromycin and Rocephin for the time being. Infectious disease consultation requested. Continue parenteral Decadron for now. Review of Systems Review of Systems: Constitutional-headache, intermittent chills ENT-no blurred vision, no double vision, no epistaxis, no sore throat Respiratory-no cough, no wheezing, no shortness of breath Cardiac-no palpitations, no chest pain, no syncope GI-no nausea, vomiting, diarrhea, melena, hematochezia -no urinary retention, no urinary incontinence, no dysuria, no hematuria Musculoskeletal-neck pain and myalgia Skin-no bruising, no rashes, no pruritus Neuro-neck stiffness Psych-no depression, no anxiety Physical Exam Physical Exam: General-alert and oriented x3, no fevers, no chills HEENT-head atraumatic and normocephalic, TMs intact bilaterally, pupils equal and reactive to light, extraocular muscles intact Neck-no lymphadenopathy or thyromegaly, trachea midline Chest-clear to auscultation percussion. No rales wheezing or rhonchi Cardiac-regular rate and rhythm, normal S1 and S2, no murmurs Abdomen-normal bowel sounds, nontender, no hepatosplenomegaly Extremities-no cyanosis, clubbing, or edema Neuro-cranial nerves II through XII intact, motor and sensory function within normal limits, strength symmetrical 5/5, no focal deficits. No apparent nuchal rigidity Psych-normal affect, normal mood Results & Data Results & Data ([facility]) Vital Signs (Past 12 Hours) Vital Signs Temp Pulse Pulse Resp BP Pulse Ox 09/26/19 08:03 36.4 C L 79 17 103/67 94 09/26/19 07:00 70 09/26/19 03:55 36.5 C 68 17 114/77 97 09/26/19 03:20 36.4 C L Laboratory Results 09/25/19 17:12 09/26/19 07:22 PG Care Time/CCT Total # of Minutes Spent Total Time Spent with Patient: Total time spent is greater than 50% in coordination of care (as documented) at patient's floor/unit and/or counseling patient: Coding Level of Care Code 54139 Subseq Hosp Care Lvl 3 Diagnoses Sepsis A41.9 Sepsis acute organ dysfunction status: unspecified Sepsis type: sepsis due to unspecified organism Pneumonia J18.9 Headache R51 Bacterial meningitis G00.9 Hypoxia R09.02 DVT prophylaxis Z29.9 (1) Sepsis Sepsis acute organ dysfunction status: unspecified Sepsis type: sepsis due to unspecified organism Qualified Code(s): A41.9 - Sepsis, unspecified organism
--- NOTE | 2019-09-26 14:40 | Electrocardiogram Report ---
Test Reason : Blood Pressure : / mmHG Vent. Rate : 102 BPM Atrial Rate : 102 BPM P-R Int : 114 ms QRS Dur : 086 ms QT Int : 332 ms P-R-T Axes : 055 -01 022 degrees QTc Int : 432 ms Sinus tachycardia RSR' or QR pattern in V1 suggests right ventricular conduction delay Otherwise normal ECG No previous ECGs available Confirmed by Alexander Oreilly ([id number]) on 09/26/2019 2:40:27 PM Referred By: [facility] Confirmed By:Alexander Oreilly
[2019-09-26] MEDS: cefTRIAXone SODIUM 2,000 MG in DEXTROSE 5% 50 ML IV SCH (21:42)
[2019-09-27] MEDS: DEXAMETHASONE SOD PHOSPHATE 10 MG in SYRINGE 0 ML IV SCH ×4 (05:04→23:56)
[2019-09-27 08:30] LABS: Basophils # (auto) 0.01 K/uL (0-0.2); Basophils % (auto) 0.1 %; Hematocrit (blood only) 36.1 % (42-52); Hemoglobin 12.6 g/dL (14.0-18.0); Immature Granulocytes # (auto) 0.14 K/uL (0.00-0.02); Immature Granulocytes % (auto) 0.9 %; Lymphocytes # (auto) 0.71 K/uL (1.2-3.4); Lymphocytes % (auto) 4.7 %; Mean Corpuscular Hemoglobin 29.9 pg (25-34); Mean Corpuscular Hgb Conc 34.9 g/dL (32-36); Mean Corpuscular Volume 85.5 fL (80-100); Mean Platelet Volume 11.9 fL (7.4-10.4); Monocytes # (auto) 0.64 K/uL (0.11-0.59); Monocytes % (auto) 4.2 %; Neutrophils # (auto) 13.64 K/uL (1.4-6.5); Neutrophils % (auto) 90.1 %; Platelet Count 174 K/uL (130-400); RDW Coefficient of Variation 14.3 % (11.5-14.5); RDW Standard Deviation 44.9 fL (36.4-46.3); Red Blood Count 4.22 M/uL (4.7-6.1); White Blood Count 15.14 K/uL (4.8-10.8)
[2019-09-27 08:58] LABS: BUN Creatinine Ratio 20.4 (10-20); Calcium 8.2 mg/dl (8.5-10.1); Creatinine Clr Calc Pharmacy 98.1 ml/min; Potassium 3.9 mmol/L (3.5-5.1)
[2019-09-27] MEDS: AZITHROMYCIN 500 MG in DEXTROSE 5% 250 ML IV SCH (08:59)
--- NOTE | 2019-09-27 10:01 | XRay Report ---
XR chest 1V portable HISTORY: Pneumonia. Hypoxia. COMPARISON: Chest 09/25/2019. FINDINGS: The right lung is clear. The heart is normal in size. Interstitial thickening and hazy dens ities within the left lung are again noted. No pneumothorax. No pleural effusions. IMPRESSION: Mixed interstitial and hazy airspace opacities within the left lung persists. This favors a pneumonia and could be secondary to a viral process. ACT 112: Negative or not required by law. Electronically signed by: Melvin Adkins M.D. 09/27/2019 10:00 AM
[2019-09-27] MEDS: NSS + 20MEQ KCL 20 MEQ/1,000 ML BAG IV SCH (12:35)
--- NOTE | 2019-09-27 20:37 | Hospitalist Progress Note ---
Date of Service September 27, 2019 Assessment & Plan (1) Sepsis: Patient presented with severe headache concerning for meningitis. Lactic acid was 1.4 Patient was febrile and had tachypnea and tachycardia Imaging revealed pneumonia which is multifocal Patient was started on antibiotics Procalcitonin was elevated at 3.62. Repeat procalcitonin today is 1.84. Patient continues with leukocytosis with a WBC of 15.1 (2) Pneumonia: Patient with no current fever or sputum production Today is day 3 of azithromycin and ceftriaxone Legionella is pending Chest x-ray today shows some improvement but still has left sided airspace opacities favoring pneumonia. MRSA swab is negative Patient states that within the last 2 years he had HIV testing which was negative We will continue antibiotics for 7 days total duration If no further bronchospasm by tomorrow we will discontinue Decadron Sputum culture is been ordered but is not collected Continue to follow clinically (3) Headache: This is resolved (4) DVT prophylaxis: Heparin 5000 units subcu every 12 hours (5) Tobacco abuse: Patient states he quit smoking 2 years ago when [facility] Until that point he was smoking 2 packs/day for most of his adult life Discussed need for sensation once discharged from the [facility] Admission and Anticipated Discharge Date Admission Date: September 25, 2019 Subjective This is a 49-year-old -Citizen Of [place] male that is [facility] He presented with change of mental status and sepsis with concern for meningitis. He has severe headache and was found to have pneumonia. COVID- 19 was negative. MRSA swab was negative. Patient was started on azithromycin and Rocephin and infectious disease was consulted. Patient states that his headache is completely resolved. He has no shortness of breath. He has no cough or fever. He has noticed production of sputum. He currently has no acute complaints. Review of Systems Review of Systems: All systems reviewed & are unremarkable except as noted in HPI & below Physical Exam Physical Exam: GENERAL : No acute distress EYES: No icterus, gaze conjugate NOSE: No evidence of epistaxis MOUTH: No lesions or candidiasis NECK: Supple LUNGS: CTA B/L, no wheezes, rales or rhonchi HEART: Regular, rate controlled ABDOMEN: Soft, NT, ND, BS Present EXTREMITIES: No LE edema, pedal pulses intact NEURO: A&OX3 Results & Data Results & Data ([facility]) Vital Signs (Past 12 Hours) Vital Signs Temp Pulse Pulse Resp BP Pulse Ox 09/27/19 19:42 36.8 C 76 20 114/77 92 09/27/19 15:45 70 09/27/19 15:23 36.4 C L 76 18 116/72 90 09/27/19 12:31 36.8 C 62 17 111/69 90 09/27/19 09:00 65 Laboratory Results 09/27/19 08:02 09/27/19 08:02 Diagnostic Findings No further diagnostics PG Care Time/CCT Total # of Minutes Spent Total Time Spent with Patient: Total time spent is greater than 50% in co ordination of care (as documented) at patient's floor/unit and/or counseling patient: 20 minutes Coding Level of Care Code 94907 Subseq Hosp Care Lvl 2 Diagnoses Sepsis A41.9 Sepsis acute organ dysfunction status: unspecified Sepsis type: sepsis due to unspecified organism Pneumonia J18.9 Headache R51 DVT prophylaxis Z29.9 Tobacco abuse Z72.0 Time Spent (min) 20 (1) Sepsis Sepsis acute organ dysfunction status: unspecified Sepsis type: sepsis due to unspecified organism Qualified Code(s): A41.9 - Sepsis, unspecified organism
[2019-09-27] MEDS: cefTRIAXone SODIUM 2,000 MG in DEXTROSE 5% 50 ML IV SCH (21:33)
[2019-09-27] MEDS: HEPARIN SOD 5,000 UNIT/0.5 ML VIAL SQ SCH (23:56)
[2019-09-28] MEDS: NSS + 20MEQ KCL 20 MEQ/1,000 ML BAG IV SCH ×2 (02:29→15:45)
[2019-09-28] MEDS: DEXAMETHASONE SOD PHOSPHATE 10 MG in SYRINGE 0 ML IV SCH ×3 (06:11→18:01)
[2019-09-28 06:52] LABS: Basophils # (auto) 0.01 K/uL (0-0.2); Basophils % (auto) 0.1 %; Hematocrit (blood only) 35.5 % (42-52); Hemoglobin 12.1 g/dL (14.0-18.0); Immature Granulocytes # (auto) 0.22 K/uL (0.00-0.02); Immature Granulocytes % (auto) 1.8 %; Lymphocytes # (auto) 0.88 K/uL (1.2-3.4); Lymphocytes % (auto) 7.4 %; Mean Corpuscular Hemoglobin 28.7 pg (25-34); Mean Corpuscular Hgb Conc 34.1 g/dL (32-36); Mean Corpuscular Volume 84.3 fL (80-100); Mean Platelet Volume 12.2 fL (7.4-10.4); Monocytes # (auto) 0.46 K/uL (0.11-0.59); Monocytes % (auto) 3.9 %; Neutrophils # (auto) 10.34 K/uL (1.4-6.5); Neutrophils % (auto) 86.8 %; Platelet Count 202 K/uL (130-400); RDW Coefficient of Variation 14.5 % (11.5-14.5); RDW Standard Deviation 44.9 fL (36.4-46.3); Red Blood Count 4.21 M/uL (4.7-6.1); White Blood Count 11.91 K/uL (4.8-10.8)
[2019-09-28 07:23] LABS: BUN Creatinine Ratio 21.4 (10-20); Calcium 7.8 mg/dl (8.5-10.1); Est GFR (African American) 115.8; Est GFR (Non-African American) 99.9; Potassium 4.4 mmol/L (3.5-5.1)
[2019-09-28] MEDS: AZITHROMYCIN 500 MG in DEXTROSE 5% 250 ML IV SCH (08:27)
[2019-09-28] MEDS: HEPARIN SOD 5,000 UNIT/0.5 ML VIAL SQ SCH ×2 (08:27→23:26)
--- NOTE | 2019-09-28 18:51 | Hospitalist Progress Note ---
Date of Service September 28, 2019 Assessment & Plan (1) Sepsis: Patient presented with severe headache concerning for meningitis. Lactic acid was 1.4 Patient was febrile and had tachypnea and tachycardia Imaging revealed pneumonia which is multifocal Patient was started on antibiotics Procalcitonin was elevated at 3.62. Repeat procalcitonin 09/27/2019 was 1.84. Patient continues with leukocytosis with a WBC of 15.1 yesterday. This is now improved to 11.91 Trend procalcitonin tomorrow morning Continue antibiotic therapy for pneumonia (2) Pneumonia: Patient with no current fever or sputum production Today is day 4 of azithromycin and ceftriaxone If procalcitonin is negative tomorrow can convert to oral antibiotics with Augmentin Legionella is pending Chest x-ray 09/27/2019 revealed some improvement but still has left sided airspace opacities favoring pneumonia. MRSA swab is negative Patient states that within the last 2 years he had HIV testing which was negative We will continue antibiotics for 7 days total duration Discontinue Decadron Sputum culture is is pending Continue to follow clinically (3) Headache: This is resolved Can discontinue droplet precautions No other MDRO (4) DVT prophylaxis: Heparin 5000 units subcu every 12 hours (5) Tobacco abuse: Patient states he quit smoking 2 years ago when the [facility] went tobacco free on all campuses Until that point he was smoking 2 packs/day for most of his adult life Reinforced need for complete cessation once discharged from the [facility] system Admission and Anticipated Discharge Date Admission Date: September 25, 2019 Subjective Patient with no acute complaints. He has no cough or sputum production. He is oxygenating well on room air. He has no fever or chills. He has no chest pain or tightness. He has no nausea vomiting. He has no abdominal pain. He has no lower extremity pain. Review of Systems Review of Systems: All systems reviewed & are unremarkable except as noted in HPI & below Physical Exam Physical Exam: GENERAL : No acute distress EYES: No icterus, gaze conjugate NOSE: No evidence of epistaxis MOUTH: No lesions or candidiasis NECK: Supple LUNGS: CTA B/L, no wheezes, rales or rhonchi HEART: Regular, rate controlled ABDOMEN: Soft, NT, ND, BS Present EXTREMITIES: No LE edema, pedal pulses intact NEURO: A&OX3 Results & Data Results & Data ([facility]) Vital Signs (Past 12 Hours) Vital Signs Temp Pulse Pulse Resp BP Pulse Ox 09/28/19 15:20 36.8 C 80 17 99/62 L 90 09/28/19 14:57 62 09/28/19 12:33 36.5 C 59 L 17 104/63 90 09/28/19 09:09 48 L 09/28/19 07:36 36.5 C 75 18 162/83 H 97 Laboratory Results 09/28/19 06:25 09/28/19 06:25 Diagnostic Findings No new diagnostic images PG Care Time/CCT Total # of Minutes Spent Total Time Spent with Patient: Total time spent is greater than 50% in coordination of care (as documented) at patient's floor/unit and/or counseling patient:20 minutes Coding Level of Care Code 38202 Subseq Hosp Care Lvl 2 Diagnoses Sepsis A41.9 Sepsis acute organ dysfunction status: unspecified Sepsis type: sepsis due to unspecified organism Pneumonia J18.9 Headache R51 DVT prophylaxis Z29.9 Tobacco abuse Z72.0 Time Spent (min) 20 (1) Sepsis Sepsis acute organ dysfunction status: unspecified Sepsis type: sepsis due to unspecified organism Qualified Code(s): A41.9 - Sepsis, unspecified organism
[2019-09-29] MEDS: HEPARIN SOD 5,000 UNIT/0.5 ML VIAL SQ SCH (08:33)
[2019-09-29] MEDS: AZITHROMYCIN 500 MG in DEXTROSE 5% 250 ML IV SCH (08:33)
[2019-09-29 08:38] LABS: Hematocrit (blood only) 35.1 % (42-52); Hemoglobin 12.1 g/dL (14.0-18.0); Mean Corpuscular Hemoglobin 29.9 pg (25-34); Mean Corpuscular Hgb Conc 34.5 g/dL (32-36); Mean Corpuscular Volume 86.7 fL (80-100); Mean Platelet Volume 12.2 fL (7.4-10.4); Platelet Count 255 K/uL (130-400); RDW Coefficient of Variation 14.8 % (11.5-14.5); RDW Standard Deviation 47.4 fL (36.4-46.3); Red Blood Count 4.05 M/uL (4.7-6.1)
[2019-09-29 09:07] LABS: Basophils # (auto) 0.03 K/uL (0-0.2); Basophils % (auto) 0.2 %; Immature Granulocytes # (auto) 1.09 K/uL (0.00-0.02); Immature Granulocytes % (auto) 7.9 %; Lymphocytes # (auto) 1.48 K/uL (1.2-3.4); Lymphocytes % (auto) 10.7 %; Monocytes # (auto) 0.83 K/uL (0.11-0.59); Neutrophils # (auto) 10.37 K/uL (1.4-6.5); Neutrophils % (auto) 75.2 %
[2019-09-29 09:09] LABS: BUN Creatinine Ratio 19.7 (10-20); Calcium 8.6 mg/dl (8.5-10.1); Creatinine Clr Calc Pharmacy 106.4 ml/min; Potassium 4.6 mmol/L (3.5-5.1)
--- NOTE | 2019-09-29 11:01 | Discharge Summary ---
Date of Service September 29, 2019 Admission HPI Per Admitting Provider Chaim Craig is a 49-year-old male who presents to the ER with fever, fatigue, severe headache, neck pain for the past 4 days. He reports his symptoms started suddenly 4 days ago Sunday. Progressively getting worse since then. He reports relatively rapid relief in the ER with Decadron, Compazine, acetaminophen, 2 L normal saline bolus and antibiotics given, although he is still significantly diaphoretic. He denies any chest pain, cough, shortness of breath. Note from review does report hypoxia with O2 sats 89% on room air. In the ER he was initially given ceftriaxone and Zithromax. After referred to [facility] his antibiotics were broadened to Zosyn and Vancomycin although I am unclear on the reasons for this. COVID-19 was negative. 2 weeks ago he had a tooth pulled. Admission Exam Per Admitting Provider Constitutional: well developed and well nourished; no acute distress Eyes: PERRL, conjunctivae normal, anicteric sclerae ENMT: external ear and nose normal, oropharynx normal Neck: trachea midline, no thyromegaly Respiratory: normal respiratory effort; no respiratory distress Auscultation: + crackles (coarse left base and laterally); no diminished lung sounds, no rales, no rhonchi and no wheezes Cardiovascular: Rate/Rhythm: + tachycardic Heart Sounds: no murmur Vessels: no JVD Extremities: normal capillary refill; no calf tenderness and no pedal edema Gastrointestinal (Abdomen): normal bowel sounds, soft, nontender, no hepatosplenomegaly Musculoskeletal: no cyanosis or clubbing, extremities motor strength 5/5 Skin: no rashes, warm and dry Neurologic: moves all extremities and awake; no focal motor deficits, no meningeal signs (Kernig/Brudzinski's negative) and not confused Speech / Cognition: normal speech Motor/Sensory: no tremor and no pronator drift Cranial Nerves: PERRL, normal accommodation, EOM intact bilaterally, normal facial strength, able to rotate head bilaterally, able to elevate shoulders bilaterally, no nystagmus and symmetric palate elevation Coordination: normal [id number] test and normal [id number] test Psychiatric: A+Ox3, euthymic affect Genitourinary: no CVA tenderness Lymphatic: no cervical or axillary lymphadenopathy Principal Diagnosis Multifocal pneumonia Pt states he feels well today. No SOB. He has not been OOB due to [facility] constraints. Tolerating PO without issue. No chest pain. Discharge Exam GENERAL : No acute distress EYES: No icterus, gaze conjugate NOSE: No evidence of epistaxis MOUTH: No lesions or candidiasis NECK: Supple LUNGS: CTA B/L, no wheezes, rales or rhonchi HEART: Regular, rate controlled ABDOMEN: Soft, NT, ND, BS Present EXTREMITIES: No LE edema, pedal pulses intact NEURO: A&OX3 Respiratory normal respiratory effort, lungs clear to auscultation Auscultation: no crackles and no wheezes Cardiovascular RRR, no murmur, no edema Gastrointestinal (Abdomen) Inspection/Auscultation: abdomen not distended Percussion/Palpation: abdomen soft; abdomen nontender Discharge Data Allergies Allergy/AdvReac Type Severity Reaction Status Date / Time No Known Allergies Allergy Unverified 09/25/19 17:31 Consultations 09/25/19 18:03 ED Decision to Admit Stat 09/26/19 09:45 Consult Infectious Diseases Routine Ordered Studies 09/25/19 17:18 CT head/brain wo con Stat CT head/brain wo con CLINICAL HISTORY: 49 years-old Male with headache, fever. Acute headache with fever TECHNIQUE: Multiple axial CT images of the head were obtained without contrast. A dose lowering technique was utilized adhering to the principles of ALARA. CT DOSE: 614.27 mGy.cm COMPARISON: None. FINDINGS: No acute intracranial hemorrhage, midline shift, intracranial mass, hydrocephalus, territorial ischemia or abnormal extra-axial collection. Senescent calcifications of the right lentiform nucleus. The calvarium is intact. Mastoid air cells are clear. Mild mucosal thickening of the ethmoid air cells. Soft tissues and orbits are unremarkable. IMPRESSION: No acute intracranial abnormality. ACT 112: Negative or not required by law. The above report was generated using voice recognition software. It may contain grammatical, syntax or spelling errors. Electronically signed by: Rob Brunson M.D. 09/25/2019 7:33 PM 09/25/19 21:21 FL lumbar puncture diagnostic Urgent * Dry tap FL lumbar puncture diagnostic CLINICAL HISTORY: 49 years-old Male with Bacterial Meningitis. Acute sepsis PROCEDURE: The risks, benefits, and alternatives to the procedure is discussed with the patient who voiced understanding. Written informed consent was obtained. The patient was placed prone on the fluoroscopy table. The lower back was prepped and draped in the usual sterile fashion. 1% lidocaine was used for local anesthesia. A 20-gauge spinal needle was inserted into the L3-L4 interlaminar space, and images in the frontal and lateral projection were obtained confirming proper positioning of the needle tip within the central canal. Despite proper positioning of the needle confirmed with imaging, there was no return of CSF into the needle hub. The needle was then removed and repositioned with the same results. Additional attempt was obtained at the L2-L3 level. The patient was uncomfortable and no further attempts were made. There were no immediate complications. The patient was then transported back to the floor. Fluoroscopy time: 0.8 minutes IMPRESSION: Fluoroscopic guided lumbar puncture without return of cerebrospinal fluid compatible with a dry tap. There were no immediate complications. Electronically signed by: Rob Brunson M.D. 09/25/2019 11:24 PM XR chest 1V portable HISTORY: Pneumonia. Hypoxia. COMPARISON: Chest 09/25/2019. FINDINGS: The right lung is clear. The heart is normal in size. Interstitial thickening and hazy densities within the left lung are again noted. No pneumothorax. No pleural effusions. IMPRESSION: Mixed interstitial and hazy airspace opacities within the left lung persists. This favors a pneumonia and could be secondary to a viral process. ACT 112: Negative or not required by law. Electronically signed by: Melvin Adkins M.D. 09/27/2019 10:00 AM Hospital Course (1) Sepsis: Patient presented with severe headache concerning for meningitis. The patient completed 5 days of ceftriaxone and 5 days of azithromycin He will be discharged with an additional 2 days of Augmentin and then stop antibiotics Recommend chest x-ray to check resolution of pneumonia in 2 weeks Lactic acid was 1.4 Patient was febrile and had tachypnea and tachycardia Imaging revealed pneumonia which is multifocal Procalcitonin was elevated at 3.62. Repeat procalcitonin 09/27/2019 was 1.84. Patient continues with downtrending leukocytosis (2) Pneumonia: Patient with no current fever or sputum production Today is day 5 of azithromycin and ceftriaxone Convert to oral antibiotics with Augmentin for 2 days (a total of 7 days of treatment) Legionella is pending. This is a reference lab and will be reviewed when returned Chest x-ray 09/27/2019 revealed some improvement but still has left sided airspace opacities favoring pneumonia. Would repeat chest x-ray in 2 weeks to verify resolution MRSA swab is negative Patient states that within the last 2 years he had HIV testing which was negative We will continue antibiotics for 7 days total duration Discontinue Decadron Sputum culture is is pending -Gram stain revealed rare gram-positive cocci and rare gram-positive bacilli Continue to follow clinically (3) Headache: This is resolved Can discontinue droplet precautions No other MDRO (4) DVT prophylaxis: Received Heparin 5000 units subcu every 12 hours while inpatient (5) Tobacco abuse: Patient states he quit smoking 2 years ago when [facility] campuses Until that point he was smoking 2 packs/day for most of his adult life Reinforced need for complete cessation once discharged from the [facility] system Total Time Total Time Spent Total Time Spent (In Minutes): 34 Total Time Includes: Examination of the Patient, Discharge Planning, Medication Reconciliation, Communication With Other Providers and Other (Communication with [facility] staff) Discharge Plan Discharge Items [facility]position[facility] Reason For Visit: SEPSIS, PNEUMONIA Discharge Diagnosis: Pneumonia Activity: Resume your previous activity Activity Comment: Maintain social distancing of 6 feet minimal Lifting: Gradually increase as tolerated Bathing: No limitations Exercise/Sports: Gradually increase as tolerated Weightbearing: Full weightbearing Non-emergency contact: Primary Care Provider Call non-emergency contact if: your symptoms worsen and your temperature is above 101 Follow-up/Referrals: Kena ANTHONY [Primary Care Provider] - Diet: Regular Addtl Attending Provider Instructions: Continue for a total of 7 days of antibiotics Maintain 6 feet social distancing Follow CDC guidelines as permitted by facility policy Pending Studies at Discharge: Yes Studies:: Urine Legionella Stand-Alone Forms: My [facility] Skilled Items Patient informed of condition?: Yes Discharge Level of Care: Other Communicable Disease: No Discharge Prognosis: Improving Lines: None Urinary Catheter: No Medications and DC Order Prescriptions: New amoxicillin-pot clavulanate [Augmentin] 500-125 mg tablet 1 tab PO BID Qty: 5 RF: 0 No Action No Known Home Medications RF: 0 Discharge Orders: Discharge Order (Routine); Ordered 09/29/19 Ordered By: Yobani Briscoe/Other Patient Handouts: What Is Pneumonia?, When You Have Pneumonia Admission Data Admit Date/Time: 09/25/19 19:13 Attending Provider: Rosita Simon Admit Provider: Jesus Manzano Primary Care Provider: Kena ANTHONY Other Providers: Jesus Manzano ; Federico Beyer ; Jeremi Rollins ; Hal Ortiz I. ; Julian Mcclain II ; Cheryl Elena ; Patrick Salcido Other Interventions: Discharge Summary Assessment (RN) Last Done: 09/29/19 10:43 Coding Level of Care Code D/C Day Management >30 mins Diagnoses Sepsis A41.9 Sepsis acute organ dysfunction status: unspecified Sepsis type: sepsis due to unspecified organism Pneumonia J18.9 Headache R51 DVT prophylaxis Z29.9 Tobacco abuse Z72.0 Time Spent (min) 34
== END 2019-09-29 13:54 | DRG 871 ==
LOC: ED 16:41 → SUATTDRO 19:13 → 2W 19:13